=== PATIENT | female | born 2005 | race Caucasian/White ===

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

== ENCOUNTER 2023-01-30 17:11 | Emergency (ER) | payer OTHER, SELFPAY ==
[2023-01-30 17:13] VITALS: BP 154/88; PULSE 117; RESP 19; TEMP 39.2; O2SAT 100; BMI 28.0
--- NOTE | 2023-01-30 17:32 | EDS_ITS ---
HPI HPI - URI History of Present Illness Chief Complaint: Cold Sx Narrative Narrative: 17-year-old female presenting with fever, chills, body aches. She also feels like she is been a bit lightheaded today. 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 She states she has 3 children at home with a fever at night now. She states she went to the urgent care and was referred to the ER because she was feeling lightheaded. Patient has a fever of 102.6. She did not realize she had a fever. She denies chest pain. No urinary complaints. No rhinorrhea or cough. She does admit to headache. Today she tripped going over a baby gate but did not injure herself ROS ROS ED Constitutional Constitutional ED: Reports chills and fever(s); Denies sweats Eyes Eyes: Denies blurry vision or change in vision ENT ENT ED: Denies ear pain or sore throat Cardiovascular Cardiovascular: Denies chest pain, palpitations or racing heartbeat Respiratory/Chest Respiratory/Chest: Denies cough, dyspnea or sputum Gastrointestinal Gastrointestinal: Denies abdominal pain, constipation, diarrhea, nausea or vomiting Genitourinary Genitourinary ED: Denies dysuria, hematuria or urinary frequency Musculoskeletal Musculoskeletal: Reports myalgias; Denies arthralgias or neck pain Integumentary Denies abscess, Abrasions or rash Neurologic Neurologic: Denies headache(s), paresthesias or weakness Psychiatric Psychiatric: Denies anxiety, depression, suicidal ideation or suicidal thoughts Endocrine Endocrinology: Denies polydipsia or polyuria [facility] Medical History Acute bronchitis, unspecified Contact with and (suspected) exposure to other viral communicable diseases Impacted cerumen of both ears Severe headache Home Medications azithromycin 250 mg tablet 250 mg PO QDAY #6 tabs 03/22/22 [Rx Last Taken Unknown] benzonatate 200 mg capsule 200 mg PO TID PRN cough #30 caps 03/22/22 [Rx Last Taken Unknown] etonogestrel 68 mg subdermal implant (Nexplanon) 1 implant subdermal ONCE 03/22/22 [History Last Taken Unknown] levonorgestrel-ethinyl estradiol 0.1 mg-20 mcg tablet 1 tab PO 03/22/22 [History Last Taken Unknown] ondansetron 4 mg disintegrating tablet 4 mg PO Q8H PRN PRN Nausea #14 tabs 01/30/23 [Rx Last Taken Unknown] Allergy/AdvReac Type Severity Reaction Status Date / Time No Known Allergies Allergy Verified 01/30/23 17:17 Social History Smoking Status: Never smoker alcohol intake: never EXAM Physical Exam Const Vital Signs: 01/30/23 17:13 01/30/23 17:25 Temperature 102.6 F H Temperature Source Oral Pulse Rate 117 H Respiratory Rate 19 H Respiratory Effort Normal Non-Labored Respiratory Depth Normal Respiratory Pattern Normal Blood Pressure 154/88 H Blood Pressure Mean 110 Pulse Ox 100 Oxygen Delivery Method Room Air Room Air Positive well nourished General Appearance ED: NAD; Negative for pallor HEENT Reports moist mucous membranes normocephalic and atraumatic Eyes PERRL and EOMs intact bilaterally Resp normal respiratory effort and clear to auscultation bilaterally Cardio Rate: tachycardic Rhythm: regular rhythm Neuro oriented x3 and CN's II-XII intact bilaterally Sensorium / Orientation: alert Motor Exam: strength 5/5 throughout Skin General Skin Exam: Negative for jaundice or pallor MDM MDM MDM Narrative Medical decision making narrative: Patient presents with fever 102.6. She slightly tach rate and I believe that is probably due to the fever. Heart sounds normal. Lungs clear to auscultation bilaterally. Given that she works in daycare and has 3 kids at home with a fever I think this is likely viral. Offered to test for COVID and flu but the patient declines. She did not realize she had a fever today. She was told by urgent care she would need an EKG because she was lightheaded, but I feel this is likely because she has a viral syndrome and a fever that is active. She will alternate Tylenol and ibuprofen at home. I gave her prescription for Zofran and 3 days off of work. Return precautions discussed. Impression: 1. Viral syndrome Discharge Plan Triage Chief Complaint: Cold Sx ED Provider: [facility] [place] Dx/Rx/DC Orders Prescriptions: New ondansetron 4 mg tablet,disintegrating 4 mg PO Q8H PRN PRN (Reason: Nausea) Qty: 14 0RF No Action levonorgestrel-ethinyl estrad 0.1-20 mg-mcg tablet 1 tab PO Nexplanon 68 mg implant 1 implant subdermal ONCE Rx Instructions: as a single dose benzonatate 200 mg capsule 200 mg PO TID PRN (Reason: cough) Qty: 30 0RF azithromycin 250 mg tablet 250 mg PO QDAY Qty: 6 0RF Rx Instructions: 2 tablets today, then 1 tablet daily on days 2 through 5. DO NOT START UNTIL 03/27/2022 IF STILL COUGHING. Stand Alone Forms: ED Work / School Excuse Primary Care Provider: Milton Ibrahim Referrals: Milton Ibrahim DO [Primary Care Provider] - Disposition Disposition: Home, Self Care
[2023-01-30] MEDS: Acetaminophen 500 MG Tablet 1000 MG PO (17:38)
== END 2023-01-30 17:52 | disposition home or self-care (01) ==
PROVIDERS: Emergency Provider Student in an Organized Health Care Education/Training Program; PCP Pediatrics; Visit Provider Student in an Organized Health Care Education/Training Program
DX: B34.9 Viral infection, unspecified (principal)
CPT/HCPCS: 99283